=== PATIENT | male | born 1980 | race Hispanic/Latino ===

== ENCOUNTER 2024-05-26 17:21 | Emergency (ER) | payer SELFPAY ==
[~2024-05-26] VITALS: Ht 170.2 cm; Wt 90.7 kg
[2024-05-26 17:21] VITALS: BP 141/75; PULSE 106; RESP 18; TEMP 98.5; O2SAT 95
== END 2024-05-26 17:52 | disposition home or self-care (01) ==
LOC: ER 17:21
DX: F41.9 Anxiety disorder, unspecified (principal)
CPT/HCPCS: 93005; 99284